=== PATIENT | male | born 1975 | race Caucasian/White ===

== ENCOUNTER 2018-05-10 11:13 | Inpatient (IN) | END 2018-05-16 19:46 | disposition home or self-care (01) | DRG 292 ==

== ENCOUNTER 2018-09-25 06:07 | Observation (INO) | payer BC ==
[2018-09-25] VITALS (51 sets, daily range): BP systolic 96–131; BP diastolic 59–82; PULSE 52–70; RESP 10–30; Ht 165.1 cm; Wt 77.3 kg
[~2018-09-25] VITALS: Ht 165.1 cm; Wt 77.3 kg
[~2018-09-25 06:07] MED LIST: ALLO100T PO; ASPI-817 PO; CARV6.2579 PO; FURO-110 PO; LISI-313 PO; METF500T24 PO; NITR0.4T32 SL; PRED10TA PO; SPIR25TA PO
[2018-09-25] MEDS ORDERED: BUPIVACAINE 0.5% (SDV) 30 ML INJ ONE (06:45)
[2018-09-25] MEDS ORDERED: MIDAZOLAM 1 MG/ML 2 ML INJ ONE ×5 (06:45→08:33)
[2018-09-25] MEDS ORDERED: SOD CHLORIDE 0.9% 500 ML ONE (06:45)
[2018-09-25] MEDS ORDERED: FENTAnyl 50 MCG/ML VIAL ONE ×2 (06:45→07:23)
[2018-09-25] MEDS ORDERED: LIDOCAINE 1% (MDV) 20 ML INJ ONE (06:45)
[2018-09-25] MEDS ORDERED: IODIXANOL LOCM 50 ML BTL ONE (06:45)
[2018-09-25] MEDS ORDERED: POLYMYXIN/BACITRACIN 1L IRRIG IRR SCH (07:00)
[2018-09-25] MEDS ORDERED: CEFAZOLIN 2 GM/50 ML (PMX) 50 ML (FOR WT < 120 KG) IVPB ONE (07:00)
[2018-09-25] MEDS ORDERED: SACU1TAB PO (07:17)
[2018-09-25] MEDS ORDERED: SPIR25TA PO (07:17)
[2018-09-25] MEDS ORDERED: ASPI81TA52 PO (07:17)
[2018-09-25] MEDS ORDERED: CARV3.1260 PO (07:17)
[2018-09-25] MEDS ORDERED: FURO20TA3 PO (07:18)
[2018-09-25] MEDS ORDERED: CEFAZOLIN 1 GM/50 ML (PMX) 100 ML IVPB ONE (07:18)
[2018-09-25] MEDS ORDERED: DIPHENHYDRAMINE 50 MG INJ ONE (07:45)
[2018-09-25] MEDS ORDERED: OXYCODONE/ACETAMINOPHEN (5/325) TAB PO PRN (09:30)
[2018-09-25] MEDS ORDERED: ACETAMINOPHEN 325 MG TAB PO PRN (09:30)
[2018-09-25] MEDS: SOD CHLORIDE 0.9% 1,000 ML IV SCH (09:35)
[2018-09-25] MEDS ORDERED: ONDANSETRON 4 MG INJ ONE (12:08)
[2018-09-25] MEDS ORDERED: morphine 2 MG INJ ONE (12:15)
[2018-09-25] MEDS ORDERED: ONDANSETRON 4 MG INJ IV PRN (12:30)
[2018-09-25] MEDS ORDERED: morphine 2 MG INJ IV PRN ×2 (12:30)
[2018-09-25] MEDS ORDERED: morphine 10 MG INJ IV SCH (12:51)
--- NOTE | 2018-09-25 13:59 | QN ---
Documentation Comment seen and examined ANNIE JIMENEZ MD Sep 25, 2018 13:59
--- NOTE | 2018-09-25 14:42 | EN ---
Date/Time of Note Date/Time of Note DATE: 09/25/18 TIME: 14:41 Event Note Cardiology Cardiology Event Note Patient status post ICD placement by my colleague. Patient seen in PACU because of chest pain. Patient currently appears comfortable, vital signs stable, discussion with patient, chest pain is at the ICD generator site and his left shoulder. It is worse with outpatient movement of the left arm. The site looks clean, no erythema or drainage. Cardiac enzymes have remained negative, chest x-ray with no significant acute abnormalities. As mentioned, his symptoms have improved significantly. Patient to remain overnight for observation. Luis Antonio Piper DO Sep 25, 2018 14:42
--- NOTE | 2018-09-25 14:53 | HP ---
DATE OF ADMISSION: 09/25/2018 REASON FOR ADMISSION: The patient is admitted electively by Dr. Villalobos for AICD placement. Current ly, the patient is under the effect of anesthesia. History is partially obtained from the charts and the nursing reports. HISTORY OF PRESENTING ILLNESS: This is a 43-year-old male with history of kidney stones, who was rec ently admitted in 04/2018. The patient was discharged at that time with a new diagnosis of CHF, acut e on chronic, cardiomyopathy with severe EF of 20% to 25%, hypertension, new onset diabetes, gout and obesity. At that time, patient was supposed to go to to see a magazine designer as an outpatient; however, the patient was admitted today electively by Dr. Villalobos for AICD placement. Status post AI CD however, had received incremental doses of fentanyl and Versed. The patient also received 7 mg of morphine IV due to persistent chest pain. Currently, the patient seems somewhat sleepy. Denies any shortness of breath. No labs are done. PAST MEDICAL HISTORY: 1. Diabetes. 2. CHF, chronic. 3. Hypertension. 4. Gout. 5. Obesity. ALLERGIES: NONE. PAST SURGICAL HISTORY: None. SOCIAL HISTORY: Per records, no history of smoking, alcohol. The patient used to use methamphetamin [employer]. 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 FAMILY HISTORY: Significant for coronary artery disease in father and mother. MEDICATIONS TAKING AT HOME: 1. Coreg 3.125 b.i.d. 2. Entresto 1 tab p.o. b.i.d. 3. Aldactone 25. 4. Aspirin 81. 5. Lasix 20. REVIEW OF SYSTEMS: The patient is currently sedated; however, patient was complaining of chest pain earlier and some shortness of breath earlier. No abdominal pain, nausea, vomiting, diarrhea, hematem esis, melena, bright red blood per rectum. PHYSICAL EXAMINATION: VITAL SIGNS: Currently blood pressure 119/68, heart rate is 56, respirations 13, saturating 97%. GENERAL: The patient is somewhat a little lethargic under effect of sedation. NECK: Supple. No JVD. HEART: Regular rate and rhythm. LUNGS: Clear to auscultation bilaterally. ABDOMEN: Soft, nontender, nondistended. EXTREMITIES: No clubbing, cyanosis or edema. DIAGNOSTIC DATA: Pending. ASSESSMENT AND PLAN: This is a 43-year-old male who presented with: 1. Severe cardiomyopathy status post AICD placement. 2. Altered mental status likely secondary to heavy doses of pain medications. 3. Chest pain, status post procedure. It could be secondary to incisional; however, need to rule ou t underlying ischemia. 4. Hypertension. 5. Diabetes. 6. Hyperlipidemia. 7. History of amphetamine use. 8. Cardiomyopathy with a depressed ejection fraction. PLAN: At this period of time, the patient will be observed carefully. We will get serial troponin a nd CK-MB. Dr. Piper has been notified. We will continue the patient on home medications. Rest of the treatment will depend on the patient's hospitalization course. Dictated By: ANNIE BERNARD/SOPHIE Conf#: [id number] DID#: [id number] CC: SHELLI BERG MD; ANGEL VILLALOBOS MD;*End*
[2018-09-25] MEDS ORDERED: DEXTROSE 50% 50 ML SYRINGE IV PRN ×2 (15:00)
[2018-09-25] MEDS ORDERED: GLUCAGON 1 MG INJ IM PRN (15:00)
[2018-09-25] MEDS ORDERED: GLUCOSE GEL 15 GRAM TUBE BUCCAL PRN (15:00)
[2018-09-25] MEDS ORDERED: GLUCOSE GEL 15 GRAM TUBE PO PRN ×2 (15:00)
[2018-09-25] MEDS: LACTATED RINGER'S 1,000 ML IV SCH (15:16)
[2018-09-25] MEDS: ASPIRIN (EC) 81 MG TAB PO SCH (15:17)
[2018-09-25] MEDS: CEFAZOLIN 1 GM/50 ML (PMX) 50 ML IVPB SCH ×2 (15:20→22:13)
[2018-09-25] MEDS: morphine SULFATE/PF (2 MG/2 ML) SYG IV PRN ×2 (17:35→22:14)
[2018-09-25] MEDS: INSULIN ASPART [NOVOLOG] 3 ML PEN SC SCH ×2 (17:41→20:44)
[2018-09-25] MEDS: SACUBITRIL/VALSARTAN (24mg-26mg) TABLET PO SCH (20:41)
[2018-09-26] VITALS (9 sets, daily range): BP systolic 119–140; BP diastolic 67–82; PULSE 58–69; RESP 16–18
[2018-09-26] MEDS ORDERED: ACCU-CHEK XX SCH (02:00)
[2018-09-26] MEDS: morphine SULFATE/PF (2 MG/2 ML) SYG IV PRN ×3 (04:46→13:05)
[2018-09-26] MEDS: CEFAZOLIN 1 GM/50 ML (PMX) 50 ML IVPB SCH ×2 (05:39→13:06)
[2018-09-26] MEDS: LACTATED RINGER'S 1,000 ML IV SCH (07:00)
[2018-09-26] MEDS: SOD CHLORIDE 0.9% 1,000 ML IV SCH (07:00)
[2018-09-26] MEDS: INSULIN ASPART [NOVOLOG] 3 ML PEN SC SCH ×2 (08:35→11:50)
[2018-09-26] MEDS: ASPIRIN (EC) 81 MG TAB PO SCH (08:37)
[2018-09-26] MEDS ORDERED: SPIRONOLACTONE 25 MG TAB PO SCH (09:00)
[2018-09-26] MEDS ORDERED: FUROSEMIDE 20 MG TAB PO SCH (09:00)
[2018-09-26] MEDS: SACUBITRIL/VALSARTAN (24mg-26mg) TABLET PO SCH (09:40)
--- NOTE | 2018-09-26 10:56 | PN ---
Date/Time of Note Date/Time of Note DATE: 09/26/18 TIME: 10:51 Assessment/Plan VTE Prophylaxis Risk score (from Ns)>0 risk: 1 SCD applied (from Ns): No SCD contraindicated: low risk/ambulating Pharmacological prophylaxis: NA/contraindicated Pharm contraindication: low risk/ambulating Lines/Catheters [facility]from [facility] Peripheral IV Assessment/Plan Hospital Course is is a 43-year-old male who presented with: 1. Severe cardiomyopathy status post AICD placement.POD #1 2. Altered mental status likely secondary to heavy doses of pain medications. 3. Chest pain, status post procedure. It could be secondary to incisional; however, need to rule out underlying ischemia. 4. Hypertension. 5. Diabetes. 6. Hyperlipidemia. 7. History of amphetamine use. 8. Cardiomyopathy with a depressed ejection fraction. plan - po pain meds - AICD precautions - trop neg - ambulate - dc home if ok with Dr sargent Result Diagram: 09/26/18 0709 09/26/18 0709 Results 24hrs Laboratory Tests Test 09/25/18 13:38 09/25/18 17:40 09/25/18 20:38 09/26/18 07:09 White Blood Count 12.9 H 8.4 # Red Blood Count 4.27 L 4.05 L Hemoglobin 13.4 L 12.5 L Hematocrit 39.5 L 37.9 L Mean Corpuscular Volume 92.5 93.6 Mean Corpuscular 31.4 30.9 Hemoglobin Mean Corpuscular 33.9 33.0 Hemoglobin Concent Red Cell Distribution 11.7 11.6 Width Platelet Count 211 200 Mean Platelet Volume 10.3 10.7 H Immature Granulocytes % 0.200 0.200 Neutrophils % 58.1 50.3 Lymphocytes % 32.5 36.3 Monocytes % 7.8 9.8 Eosinophils % 1.2 3.2 Basophils % 0.2 0.2 Nucleated Red Blood 0.0 0.0 Cells % Immature Granulocytes # 0.030 0.020 Neutrophils # 7.5 4.2 Lymphocytes # 4.2 H 3.1 H Monocytes # 1.0 H 0.8 Eosinophils # 0.2 0.3 Basophils # 0.0 0.0 Nucleated Red Blood 0.0 0.0 Cells # CBC Results Faxed/Phoned Sodium Level 140 143 Potassium Level 3.9 4.4 Chloride Level 106 101 Carbon Dioxide Level 27 30 Anion Gap 7 12 Blood Urea Nitrogen 16 17 Creatinine 0.97 1.04 Est Glomerular Filtrat > 60 > 60 Rate mL/min Glucose Level 146 124 Calcium Level 8.9 9.3 Creatine Kinase 138 Creatine Kinase Index 0.3 Creatinine Kinase MB 0.35 (Mass) Troponin I 0.047 Bedside Glucose 115 135 Phosphorus Level 4.2 Magnesium Level 2.0 Test 09/26/18 08:32 Bedside Glucose 157 Subjective 24 Hr Interval Summary Free Text/Dictation Feels better but still has incision and shoulder pain Exam/Review of Systems Vital Signs Vitals Vital Signs Date Temp Pulse Resp B/P (MAP) Pulse Ox O2 O2 Flow FiO2 Time Delivery Rate 09/26/18 65 08:24 09/26/18 97.6 16 140/82 96 07:38 (101) 09/25/18 Nasal 2.0 13:31 Cannula Intake and Output 09/25/18 09/25/18 09/26/18 1515:00 23:00 07:00 IntakeIntake Total 650 ml 1100 ml OutputOutput Total 800 ml BalanceBalance 650 ml 300 ml Exam ENERAL: The patient is awake,alert NECK: Supple. No JVD. HEART: Regular rate and rhythm. LUNGS: Clear to auscultation bilaterally. ABDOMEN: Soft, nontender, nondistended. EXTREMITIES: No clubbing, cyanosis or edema. s/p aicd Left upper chest Medications Medications Current Medications Acetaminophen (Tylenol Tab) 1,000 mg Q4H PRN PO PAIN LEVEL 1-5; Start 09/25/18 at 09:30 Cefazolin Sodium 50 ml @ 100 mls/hr Q8 IVPB Last administered on 09/26/18at 05:39; Admin Dose 100 MLS/HR; Start 09/25/18 at 14:00 Aspirin (Halfprin) 81 mg DAILY PO Last administered on 09/26/18at 08:37; Admin Dose 81 MG; Start 09/25/18 at 11:00 Furosemide (Lasix) 20 mg DAILY PO Last administered on 09/26/18at 08:38; Admin Dose 20 MG; Start 09/26/18 at 09:00 Sacubitril/ Valsartan (Entresto 24 Mg-26 Mg) 24-26mg po BID BID PO Last administered on 09/26/18at 09:40; Admin Dose 1 TAB; Start 09/25/18 at 21:00 Spironolactone (Aldactone) 25 mg DAILY PO Last administered on 09/26/18at 08:37; Admin Dose 25 MG; Start 09/26/18 at 09:00 Ondansetron HCl (Zofran Inj) 4 mg Q4H PRN IV NAUSEA AND/OR VOMITING Last administered on 09/25/18at 12:19; Admin Dose 4 MG; Start 09/25/18 at 12:30 Diagnostic Test (Pha) (Accu-Chek) 1 ea 02 XX ; Start 09/26/18 at 02:00 Insulin Aspart (Novolog Insulin Pen) NOVOLOG *MILD* ALGORITHM WITH MEALS BEDTIME SC ; Start 09/25/18 at 17:55 Miscellaneous Information 1 ea NOTE XX ; Start 09/25/18 at 15:00 Glucose (Glutose) 15 gm Q15M PRN PO DECREASED GLUCOSE; Start 09/25/18 at 15:00 Glucose (Glutose) 22.5 gm Q15M PRN PO DECREASED GLUCOSE; Start 09/25/18 at 15:00 Dextrose (D50w Syringe) 25 ml Q15M PRN IV DECREASED GLUCOSE; Start 09/25/18 at 15:00 Dextrose (D50w Syringe) 50 ml Q15M PRN IV DECREASED GLUCOSE; Start 09/25/18 at 15:00 Glucagon (Glucagen) 1 mg Q15M PRN IM DECREASED GLUCOSE; Start 09/25/18 at 15:00 Glucose (Glutose) 15 gm Q15M PRN BUCCAL DECREASED GLUCOSE; Start 09/25/18 at 15:00 Morphine Sulfate (morphine SULFATE (PF)) 2.5 mg Q4H PRN IV SEVERE PAIN LEVEL 7- 10 Last administered on 09/26/18at 08:52; Admin Dose 2.5 MG; Start 09/25/18 at 18:00 ANNIE JIMENEZ MD Sep 26, 2018 10:56
--- NOTE | 2018-09-26 10:57 | PDOCDIS ---
Discharge Instructions DIAGNOSIS Discharge Diagnosis S/P AICD CONDITION [id number] Patient Condition: [id number] Fair HOME CARE INSTRUCTIONS: [id number] Special Diet: [id number] CARDIAC ACTIVITY: [id number] Activity Restrictions: [id number] Slowly Increase Activity Rest between Activity FOLLOW UP/APPOINTMENTS Follow-up Plan AICD precautions f/u Dr Piper in 1-2 weeks keep surgical site clean return to ER if has chest pain, any signs of infection ANNIE JIMENEZ MD Sep 26, 2018 10:57
[2018-09-26] MEDS ORDERED: HYDR-4012 PO (10:58)
--- NOTE | 2018-09-26 12:42 | CONS ---
Date/Time of Note Date/Time of Note DATE: 09/26/18 TIME: 12:40 Assessment/Plan Assessment/Plan Assessment/Plan Severe cardiomyopathy status post dual-chamber ICD placement 09/25/2018 -Patient status post ICD placement yesterday. Chest x-ray with mild point vascular congestion but otherwise no pneumothorax. Would continue diuretics. Patient ordered for pain medication. Limitations discussed with patient. Patient to follow-up with Dr. Villalobos as an outpatient. Result Diagram: 09/26/18 0709 09/26/18 0709 Results 24hrs Laboratory Tests Test 09/25/18 13:38 09/25/18 17:40 09/25/18 20:38 09/26/18 07:09 White Blood Count 12.9 H 8.4 # Red Blood Count 4.27 L 4.05 L Hemoglobin 13.4 L 12.5 L Hematocrit 39.5 L 37.9 L Mean Corpuscular Volume 92.5 93.6 Mean Corpuscular 31.4 30.9 Hemoglobin Mean Corpuscular 33.9 33.0 Hemoglobin Concent Red Cell Distribution 11.7 11.6 Width Platelet Count 211 200 Mean Platelet Volume 10.3 10.7 H Immature Granulocytes % 0.200 0.200 Neutrophils % 58.1 50.3 Lymphocytes % 32.5 36.3 Monocytes % 7.8 9.8 Eosinophils % 1.2 3.2 Basophils % 0.2 0.2 Nucleated Red Blood 0.0 0.0 Cells % Immature Granulocytes # 0.030 0.020 Neutrophils # 7.5 4.2 Lymphocytes # 4.2 H 3.1 H Monocytes # 1.0 H 0.8 Eosinophils # 0.2 0.3 Basophils # 0.0 0.0 Nucleated Red Blood 0.0 0.0 Cells # CBC Results Faxed/Phoned Sodium Level 140 143 Potassium Level 3.9 4.4 Chloride Level 106 101 Carbon Dioxide Level 27 30 Anion Gap 7 12 Blood Urea Nitrogen 16 17 Creatinine 0.97 1.04 Est Glomerular Filtrat > 60 > 60 Rate mL/min Glucose Level 146 124 Calcium Level 8.9 9.3 Creatine Kinase 138 Creatine Kinase Index 0.3 Creatinine Kinase MB 0.35 (Mass) Troponin I 0.047 Bedside Glucose 115 135 Phosphorus Level 4.2 Magnesium Level 2.0 Test 09/26/18 08:32 09/26/18 12:11 Bedside Glucose 157 132 Consultation Date/Type/Reason Admit Date/Time Sep 25, 2018 at 09:03 Initial Consult Date Type of Consult cv 24 HR Interval Summary Free Text/Dictation Chest wall pain is better. Denies shortness of breath, dizziness or palpitations Exam/Review of Systems Vital Signs Vitals Vital Signs Date Temp Pulse Resp B/P (MAP) Pulse Ox O2 O2 Flow FiO2 Time Delivery Rate 09/26/18 98.5 68 16 120/74 94 11:42 (89) 09/25/18 Nasal 2.0 13:31 Cannula Intake and Output 09/25/18 09/25/18 09/26/18 1515:00 23:00 07:00 IntakeIntake Total 650 ml 1100 ml OutputOutput Total 800 ml BalanceBalance 650 ml 300 ml Exam No apparent distress Constitutional: alert, oriented Head: normocephalic Respiratory: other (Coarse breath sounds bilaterally, no wheezing) Cardiovascular: regular rate and rhythm, other (S1-S2 heard) Gastrointestinal: soft, non-tender, bowel sounds Extremities: other (No significant edema) Additional Comments Chest wall ICD pocket site is soft, mild ecchymosis, no significant erythema, no drainage Medications Medications Current Medications Acetaminophen (Tylenol Tab) 1,000 mg Q4H PRN PO PAIN LEVEL 1-5; Start 09/25/18 at 09:30 Cefazolin Sodium 50 ml @ 100 mls/hr Q8 IVPB Last administered on 09/26/18at 05:39; Admin Dose 100 MLS/HR; Start 09/25/18 at 14:00 Aspirin (Halfprin) 81 mg DAILY PO Last administered on 09/26/18at 08:37; Admin Dose 81 MG; Start 09/25/18 at 11:00 Furosemide (Lasix) 20 mg DAILY PO Last administered on 09/26/18 08:38; Admin Dose 20 MG; Start 09/26/18 at 09:00 Sacubitril/ Valsartan (Entresto 24 Mg-26 Mg) 24-26mg po BID BID PO Last administered on 09/26/18at 09:40; Admin Dose 1 TAB; Start 09/25/18 at 21:00 Spironolactone (Aldactone) 25 mg DAILY PO Last administered on 09/26/18at 08:37; Admin Dose 25 MG; Start 09/26/18 at 09:00 Ondansetron HCl (Zofran Inj) 4 mg Q4H PRN IV NAUSEA AND/OR VOMITING Last administered on 09/25/18at 12:19; Admin Dose 4 MG; Start 09/25/18 at 12:30 Diagnostic Test (Pha) (Accu-Chek) 1 ea 02 XX ; Start 09/26/18 at 02:00 Insulin Aspart (Novolog Insulin Pen) NOVOLOG *MILD* ALGORITHM WITH MEALS BEDTIME SC ; Start 09/25/18 at 17:55 Miscellaneous Information 1 ea NOTE XX ; Start 09/25/18 at 15:00 Glucose (Glutose) 15 gm Q15M PRN PO DECREASED GLUCOSE; Start 09/25/18 at 15:00 Glucose (Glutose) 22.5 gm Q15M PRN PO DECREASED GLUCOSE; Start 09/25/18 at 15:00 Dextrose (D50w Syringe) 25 ml Q15M PRN IV DECREASED GLUCOSE; Start 09/25/18 at 15:00 Dextrose (D50w Syringe) 50 ml Q15M PRN IV DECREASED GLUCOSE; Start 09/25/18 at 15:00 Glucagon (Glucagen) 1 mg Q15M PRN IM DECREASED GLUCOSE; Start 09/25/18 at 15:00 Glucose (Glutose) 15 gm Q15M PRN BUCCAL DECREASED GLUCOSE; Start 09/25/18 at 15:00 Morphine Sulfate (morphine SULFATE (PF)) 2.5 mg Q4H PRN IV SEVERE PAIN LEVEL 7- 10 Last administered on 09/26/18at 08:52; Admin Dose 2.5 MG; Start 09/25/18 at 18:00 Luis Antonio Piper DO Sep 26, 2018 12:42
--- NOTE | 2018-09-26 18:04 | DS ---
DATE OF ADMISSION: 09/25/2018 DATE OF DISCHARGE: 09/26/2018 HISTORY OF PRESENT ILLNESS AND HOSPITAL COURSE: This is a 43-year-old male with a past medical histo ry of kidney stones, CHF acute on chronic, cardiomyopathy with EF of 20% to 25%, hypertension, diabet es, gout, obesity who was following Dr. Coppola as an outpatient, was admitted electively by Dr. Unique amaya for AICD placement. Status post AICD placement, the patient was having incremental doses of f entanyl and Versed. He also received quite heavy doses of IV morphine due to persistent chest pain, had some shortness of breath. On admission, vital signs were stable. Labs showed white count of 12. 9, this came down to 8.4, hemoglobin 12.5, BMP within normal limit. The patient had a chest x-ray th at showed some cardiomegaly with mild pulmonary vascular congestion. The patient was feeling much be tter the next day; however, still requiring narcotics for pain. The patient was seen by Dr. Feliz jimenez and was cleared for discharge. The patient is ambulating. The patient was explained about the A ICD precautions. FINAL DISCHARGE DIAGNOSES: 1. Severe cardiomyopathy status post AICD placement. 2. Chest pain status post procedure secondary to incisional. Troponins were negative. EKG negative . 3. Hypertension. 4. Diabetes. 5. Hyperlipidemia. 6. History of amphetamine use. 7. History of cardiomyopathy with depressed EF. DISCHARGE CONDITION: Stable. DISCHARGE DIET: Two-gram sodium, 1800 ADA. DISCHARGE MEDICATIONS: 1. [place] 1 tab p.o. q.4h. p.r.n. pain. 2. Aspirin 81. 3. Coreg 3.125 b.i.d. 4. Lasix 40. 5. Entresto 1 tab p.o. b.i.d. 6. Spironolactone 25 every day. The patient was instructed to follow with PCP in 1 to 2 weeks, cardiology in 1 to 2 weeks and keep th e surgical site clean. Dictated By: ANNIE BERNARD/SOPHIE Conf#: [id number] DID#: [id number] CC: ANGEL YOON MD;*EndCC*
--- NOTE | 2018-09-27 11:56 | RADRPT ---
Vent Rate: 56 bpm RR Interval: 0 msec WV Interval: 170 msec QRS Duration: 122 msec QT Interval: 486 msec QTC Interval: 468 msec P-R-T [place]: 34 - -11 - 134 degrees Sinus bradycardia Nonspecific intraventricular conduction delay T wave abnormality, consider anterolateral ischemia Abnormal ECG Electronically Signed By: Yordan Tsang [id number]
== END 2018-09-26 16:57 | disposition home or self-care (01) ==
LOC: SDS 06:07 → TEL 09:03 → REC 09:03 → UNDOADMIN 09:03 → TEL 13:46 → REC 13:46
PROVIDERS: ADMIT Internal Medicine Cardiovascular Disease; ATTEND Internal Medicine Cardiovascular Disease
DX: I42.9 Cardiomyopathy, unspecified (principal); R07.9 Chest pain, unspecified; I10 Essential (primary) hypertension; E11.9 Type 2 diabetes mellitus without complications; E78.5 Hyperlipidemia, unspecified; F15.10 Other stimulant abuse, uncomplicated; E66.9 Obesity, unspecified; Z68.28 Body mass index [BMI] 28.0-28.9, adult; Z95.810 Presence of automatic (implantable) cardiac defibrillator
CPT/HCPCS: 33249; 71045; 80048; 82550; 82553; 82962; 83735; 84100; 84484; 85025; 93005; C1721; C1777; C1898; J0690; J1200; J1644; J2250; J2270; J2274; J2405; J3010; J7030; J7040; J7120; Q9967; Z7500; Z7610; G0378; J1815

== ENCOUNTER 2019-03-22 18:36 | Inpatient (IN) | payer BC ==
[~2019-03-22] VITALS: Ht 165.1 cm; Wt 82.5 kg
[~2019-03-22 18:36] MED LIST changes: -ALLO100T PO; -ASPI-817 PO; +ASPI81TA52 PO; +CARV3.1260 PO; -CARV6.2579 PO; -FURO-110 PO; +FURO20TA3 PO; +HYDR-4012 PO; -LISI-313 PO; -METF500T24 PO; -NITR0.4T32 SL; -PRED10TA PO; +SACU1TAB PO
[2019-03-22 20:00] VITALS: BP 161/91; PULSE 84; RESP 18
[2019-03-22 20:30] VITALS: BP 120/76; PULSE 82; RESP 18
[2019-03-22] MEDS ORDERED: HYDROCODONE/APAP (7.5/325) TAB PO PRN (22:00)
[2019-03-22] MEDS ORDERED: ALBUTEROL/IPRATROPIUM (NEB) 3 ML AMP HHN PRN (22:00)
[2019-03-22] MEDS ORDERED: CEFTRIAXONE 1 GM/50 ML (PMX) 50 ML IVPB SCH (22:00)
[2019-03-23] VITALS (7 sets, daily range): BP systolic 110–143; BP diastolic 53–84; PULSE 66–83; RESP 18–20; Ht 165.1 cm; Wt 82.5 kg
[2019-03-23] MEDS ORDERED: POTASSIUM CHLORIDE (SR) 20 MEQ TAB PO ONE (01:00)
[2019-03-23] MEDS: SACUBITRIL/VALSARTAN (24mg-26mg) TABLET PO SCH ×2 (08:09→22:11)
[2019-03-23] MEDS: ASPIRIN 81 MG TAB PO SCH (08:10)
[2019-03-23] MEDS: SPIRONOLACTONE 25 MG TAB PO SCH (08:10)
[2019-03-23] MEDS: FUROSEMIDE 20 MG TAB PO SCH (08:10)
--- NOTE | 2019-03-23 13:17 | HP ---
ZAYNAB MONTESINOS 03/23/19 1317: Date/Time of Note Date/Time of Note DATE: 03/23/19 TIME: 13:17 Assessment/Plan VTE Prophylaxis Risk score (from [facility] [place] risk: 4 SCD applied (from [facility] [place]): No SCD contraindicated: other Pharmacological prophylaxis: LMWH Lines/Catheters IV Catheter Type (from [facility]): [place] Urinary Cath still in place: No Assessment/Plan Hospital Course 1. Sepsis with myalgia, fever, leucocytosis. pt had lactic acid 3.78 in [facility] , WBC 16. Blood cultures was drawn in the [facility], pending. 2. Tonsillitis. Pt has history of group A strep throat infection in past. 3. Hypertension 4. Obesity 5. CHF, EF 15-20 % 6. Normocytic normochromic anemia 7. s/p defibrillator placement 09/2018, 8. Hx of appendectomy 9. Hx of gout 10. Possible DM type II, incomplete data. Pt denied Assessment/Plan -c/w Rocephin -DVT proph. Lovenox -hypoglycemic protocol -GI proph. Protonix -BP control -c/w coreg, furosemide -iron panel -throat culture -blood cultures were drawn in the [facility], wait for res. -mag citrate for constipation -lozenges to suck Result Diagram: 03/22/19223503/22/192235 Results 24hrs Laboratory Tests Test 03/22/19 22:36 White Blood Count 15.1 #H Red Blood Count 3.85 L Hemoglobin 11.8 L Hematocrit 34.0 L Mean Corpuscular Volume 88.3 Mean Corpuscular Hemoglobin 30.6 Mean Corpuscular Hemoglobin Concent 34.7 Red Cell Distribution Width 12.5 Platelet Count 195 Mean Platelet Volume 10.8 H Immature Granulocytes % 0.500 H Neutrophils % 68.9 Lymphocytes % 17.6 Monocytes % 10.4 Eosinophils % 2.4 Basophils % 0.2 Nucleated Red Blood Cells % 0.0 Immature Granulocytes # 0.080 H Neutrophils # 10.4 H Lymphocytes # 2.7 Monocytes # 1.6 H Eosinophils # 0.4 Basophils # 0.0 Nucleated Red Blood Cells # 0.0 Sodium Level 144 Potassium Level 3.6 Chloride Level 108 Carbon Dioxide Level 25 Anion Gap 11 Blood Urea Nitrogen 14 Creatinine 1.07 Est Glomerular Filtrat Rate mL/min > 60 Glucose Level 191 Calcium Level 8.8 Total Bilirubin 0.9 Direct Bilirubin 0.00 Indirect Bilirubin 0.9 Aspartate Amino Transf (AST/SGOT) 17 Alanine Aminotransferase (ALT/SGPT) 16 Alkaline Phosphatase 72 Total Protein 7.3 Albumin 3.8 Globulin 3.50 H Albumin/Globulin Ratio 1.08 HPI/ROS Admit Date/Time Admit Date/Time Mar 22, 2019 at 18:36 Hx of Present Illness This 44 y.o male with medical history of CHF, obesity, DM type ii, gout, implanted defibrillator, hypertension, and group A strep throat was transferred this night from [facility] for fever, myalgia, nausea, and pain in throat. Pt had similar symptoms before, he was diagnosed with sepsis. He was brought to ER [place] [facility] on 03/22/2019. He was drawn blood. CBC showed 16.1 RBC 4.09 hemoglobin 12.5 hematocrit 35.8 platelets 197. UA is negative. BMP shows glucose 264 sodium 142 potassium 3.0 chloride 104 CO2 24 BUN 14 calcium 8.9 albumin 3.6. Lactic acid once 3.78. Vital signs blood pressure 120/71 saturation on room air 97 temperature 99.3 pulse 96 respiration 18. Chest x-ray was done results are not seen. It was given penicillin 1,200,000 once IV . Potassium was supplemented patient was given 2 L of sodium chloride. Due to insurance purposes was transferred to [facility]. Medical history: 1. Diabetes mellitus type II. 2. CHF, chronic. 3. Hypertension. 4. Gout. 5. Obesity. SOCIAL HISTORY: Per records, no history of smoking, alcohol. The patient used to use methamphetamine. 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 ROS Constitutional: chills, fatigue, febrile, poor po ENT: sore throat Respiratory: no complaints Gastrointestinal: nausea, other (poor apetite) Genitourinary: no complaints Musculoskeletal: bone/joint pain Neurologic: no complaints Lymphatic: adenopathy PMH/Family/Social Past Medical History Medications Current Medications Aspirin (Aspirin) 81 mg DAILY PO Last administered on 03/23/19at 08:10; Admin Dose 81 MG; Start 03/23/19 at 09:00 Carvedilol (Coreg) 3.125 mg BID PO Last administered on 03/23/19at 08:09; Admin Dose 3.125 MG; Start 03/22/19 at 22:00 Furosemide (Lasix) 20 mg DAILY PO Last administered on 03/23/19at 08:10; Admin Dose 20 MG; Start 03/23/19 at 09:00 Spironolactone (Aldactone) 25 mg DAILY PO Last administered on 03/23/19at 08:10; Admin Dose 25 MG; Start 03/23/19 at 09:00 Acetaminophen/ Hydrocodone Bitart ([place] (7.5-325)) 1 tab Q4H PRN PO MODERATE PAIN LEVEL 4-6; Start 03/22/19 at 22:00 Acetaminophen (Tylenol Tab) 650 mg Q6H PRN PO MILD PAIN(1-3)OR ELEVATED TEMP; Start 03/22/19 at 22:00 Albuterol/ Ipratropium (Duoneb) 3 ml Q6H RESP THERAPY PRN HHN SHORTNESS OF BREATH; Start 03/22/19 at 22:00 Ceftriaxone Sodium 50 ml @ 100 mls/hr Q24H IVPB Last administered on 03/22/19at 23:20; Admin Dose 100 MLS/HR; Start 03/22/19 at 22:00 Sacubitril/ Valsartan (Entresto 24 Mg-26 Mg) 1 tab BID PO Last administered on 03/23/19at 08:09; Admin Dose 1 TAB; Start 03/23/19 at 09:00 Coded Allergies: No Known Allergy (Unverified , 09/25/18) Past Surgical History Past Surgical Hx: other (ACID 09/2018, appendectomy) Social History Alcohol Use: none Smoking Status: Current every day smoker Drug Use: other (methamph. in past. ) Exam/Review of Systems Vital Signs Vitals Vital Signs Date Temp Pulse Resp B/P (MAP) Pulse Ox O2 O2 Flow FiO2 Time Delivery Rate 03/23/19 98.2 70 18 117/59 96 Room Air 11:11 (78) Intake and Output 03/22/19 03/22/19 03/23/19 1515:00 23:00 07:00 IntakeIntake Total 50 ml BalanceBalance 50 ml Exam Exam left chest defibrillator. Constitutional: alert, oriented Psych: no complaints Head: normocephalic ENMT: other (tonsills are enlarged, grade II, with purulent lacunas) Neck: supple, other Respiratory: diminished breath sounds Cardiovascular: regular rate and rhythm Gastrointestinal: soft Genitourinary - Male: CVA tenderness; No nl penis, No nl scrotum, No discharge, No other ANNIE JIMENEZ MD 03/23/19 1530: Assessment/Plan Assessment/Plan Assessment/Plan seen and examined recurrent strep phargitis pencilllin id consult Result Diagram: 03/22/19 2236 03/22/192235 PMH/Family/Social Past Medical History Coded Allergies: No Known Allergy (Unverified , 09/25/18) ZAYNAB MONTESINOS Mar 23, 2019 13:17 ANNIE JIMENEZ MD Mar 23, 2019 15:30
[2019-03-23] MEDS ORDERED: GLUCOSE GEL 15 GRAM TUBE BUCCAL PRN (14:00)
[2019-03-23] MEDS ORDERED: GLUCOSE GEL 15 GRAM TUBE PO PRN ×2 (14:00)
[2019-03-23] MEDS ORDERED: DEXTROSE 50% 50 ML SYRINGE IV PRN ×2 (14:00)
[2019-03-23] MEDS ORDERED: CEPASTAT LOZENGE MT PRN (14:00)
[2019-03-23] MEDS ORDERED: GLUCAGON 1 MG INJ IM PRN (14:00)
[2019-03-23] MEDS: ENOXAPARIN 40 MG/0.4 ML SYG SC SCH (14:59)
[2019-03-23] MEDS ORDERED: MAGNESIUM CITRATE 300 ML BTL PO ONE (15:00)
[2019-03-23] MEDS: AMOXICILLIN 500 MG CAP PO SCH ×2 (17:02→23:25)
[2019-03-23] MEDS: INSULIN ASPART [NOVOLOG] 3 ML PEN SC SCH ×2 (17:02→21:56)
--- NOTE | 2019-03-23 19:50 | CONS ---
DATE OF ADMISSION: 03/22/2019 DATE OF CONSULTATION: 03/23/2019 TYPE OF CONSULTATION: Infectious disease. REASON FOR CONSULTATION: Antibiotic management. HISTORY OF PRESENT ILLNESS: Riley Romano is a 44-year-old male with numerous problems who comes in with sepsis and is being seen for antibiotic management. His past problems include: 1. Coronary artery disease with CHF. 2. Obesity. 3. Type 2 diabetes mellitus. 4. Implanted defibrillator. 5. Gout. 6. Hypertension. The patient was noted to have group A strep pharyngitis and was transferred from [facility] for fever, myalgia and nausea and pain in his throat. The patient was brought to the emergency room on 03/22/2019. His white count was 16.1, H and H of 12.5 , platelet count 197. UA is negative. BMP shows glucose of 264. BUN and creatinine is 14/1.07. Lactic acid was 3.78. Vital Signs: Blo od pressure was 120/70. His temperature is 99.3. Chest x-ray was done. The patient was given 1.2 m illion units of penicillin IV and he was transferred to [facility]. PAST MEDICAL HISTORY: Essentially as outlined. FAMILY HISTORY: Noncontributory. SOCIAL HISTORY: He does not smoke, drink or abuse drugs. He used to use amphetamines, methamphetami dexter. 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 REVIEW OF SYSTEMS: Noncontributory. PAST SURGICAL HISTORY: Positive for AICD and also for appendectomy. In reviewing his history, he is a current every day smoker. He does not drink, and he has used metha mphetamines in the past. PHYSICAL EXAMINATION GENERAL: He is a well-developed, well-nourished male, alert, responsive, in no acute distress. VITAL SIGNS: Stable. He is afebrile. SKIN: Without generalized rash. HEENT: Within normal limits. He has enlarged tonsils with purulent lacunae. NECK: Supple. Lymph nodes none palpable. THORAX: He has a left chest defibrillator. CHEST: Decreased breath sounds at the bases. HEART: Without murmur or gallop. ABDOMEN: Soft, nontender, without organosplenomegaly or masses. He has some CVA tenderness. RECTAL AND GENITAL: Deferred. NEUROLOGIC: No focal neurological abnormality. IMPRESSION AND PLAN: The patient was admitted with strep pharyngitis. Group A rapid strep test was negative, so it is not likely that he has strep pharyngitis. White count, however, is 15.1. The pat ient was placed on amoxicillin 500 q.8. We will continue him on this regimen. I will dictate my fin dings to Dr. Ramires. Dictated By: ATIF DUFF MD, JD/SOPHIE Conf#: [id number] DID#: [id number] CC: SHELLI BERG MD;*End*
[2019-03-23] MEDS: ACETAMINOPHEN 325 MG TAB PO PRN (22:10)
[2019-03-24 02:25] VITALS: BP 115/71; PULSE 61; RESP 16
[2019-03-24] MEDS: AMOXICILLIN 500 MG CAP PO SCH ×3 (05:58→21:38)
[2019-03-24] MEDS: PANTOPRAZOLE (EC) 40 MG TAB PO SCH (05:58)
[2019-03-24 07:32] VITALS: BP 100/56; PULSE 62; RESP 20
[2019-03-24] MEDS: INSULIN ASPART [NOVOLOG] 3 ML PEN SC SCH ×4 (08:00→21:00)
[2019-03-24] MEDS: FUROSEMIDE 20 MG TAB PO SCH (08:21)
[2019-03-24] MEDS: SACUBITRIL/VALSARTAN (24mg-26mg) TABLET PO SCH ×2 (08:21→21:42)
[2019-03-24] MEDS: ASPIRIN 81 MG TAB PO SCH (08:21)
[2019-03-24] MEDS: SPIRONOLACTONE 25 MG TAB PO SCH (08:21)
[2019-03-24] MEDS: ENOXAPARIN 40 MG/0.4 ML SYG SC SCH (08:22)
--- NOTE | 2019-03-24 10:24 | PN ---
Date/Time of Note Date/Time of Note DATE: 03/24/19 TIME: 10:22 Assessment/Plan VTE Prophylaxis Risk score (from Ns)>0 risk: 1 SCD applied (from [facility] No SCD contraindicated: other Pharmacological prophylaxis: LMWH Lines/Catheters IV Catheter Type (from [facility]): Peripheral IV Urinary Cath still in place: No Assessment/Plan Hospital Course 1. Sepsis with myalgia, fever, leucocytosis. pt had lactic acid 3.78 in [facility] ,consecutive lactic acid is 1.1. WBC 16in [facility]. Blood cultures was drawn in the [facility], pending. 2. Tonsillitis. Pt has history of group A strep throat infection in past. Now throat culture strep A is negative 3. Hypertension 4. Obesity 5. CHF, EF 15-20 % 6. Normocytic normochromic anemia, iron level is normal 7. s/p defibrillator placement 09/2018, 8. Hx of appendectomy 9. Hx of gout 10. pt is prediabetic Hg A1 C 5.9 Assessment/Plan -c/w Amoxicillin -ID consult dr Herbert is appreciated -DVT proph. Lovenox -hypoglycemic protocol -GI proph. Protonix -BP control achieved -c/w coreg, furosemide -iron panel, normal amount of iron -throat culture neg. -blood cultures were drawn in the [facility], wait for res. -lozenges to suck Result Diagram: 03/24/19 0458 03/24/19 0457 Results 24hrs Laboratory Tests Test 03/23/19 17:01 03/23/19 21:50 03/24/19 01:53 03/24/19 04:57 Bedside Glucose 128 181 152 Sodium Level 144 Potassium Level 3.9 Chloride Level 108 Carbon Dioxide Level 28 Anion Gap 8 Blood Urea Nitrogen 14 Creatinine 0.86 Est Glomerular Filtrat > 60 Rate mL/min Glucose Level 136 # Lactic Acid Level 1.1 Calcium Level 9.0 Test 03/24/19 04:58 03/24/19 08:18 White Blood Count 8.2 # Red Blood Count 4.14 L Hemoglobin 12.5 L Hematocrit 36.3 L Mean Corpuscular Volume 87.7 Mean Corpuscular 30.2 Hemoglobin Mean Corpuscular 34.4 Hemoglobin Concent Red Cell Distribution 12.4 Width Platelet Count 260 # Mean Platelet Volume 10.7 H Immature Granulocytes % 0.900 H Neutrophils % 38.2 L Lymphocytes % 43.3 Monocytes % 11.4 H Eosinophils % 5.8 Basophils % 0.4 Nucleated Red Blood 0.0 Cells % Immature Granulocytes # 0.070 H Neutrophils # 3.1 Lymphocytes # 3.5 H Monocytes # 0.9 Eosinophils # 0.5 Basophils # 0.0 Nucleated Red Blood 0.0 Cells # Hemoglobin A1c 5.9 Iron Level 90 Total Iron Binding 258 Capacity Percent Iron Saturation 35 Thyroid Stimulating 3.380 Hormone (TSH) Bedside Glucose 137 Subjective 24 Hr Interval Summary Constitutional: improved ENT: sore throat Lymphatic: adenopathy Exam/Review of Systems Exam Vitals Vital Signs Date Temp Pulse Resp B/P (MAP) Pulse Ox O2 O2 Flow FiO2 Time Delivery Rate 03/24/19 97.9 62 20 100/56 96 07:32 (71) 03/23/19 Room Air 20:00 Intake and Output 03/23/19 03/23/19 03/24/19 1515:00 23:00 07:00 IntakeIntake Total 1120 ml 350 ml BalanceBalance 1120 ml 350 ml Constitutional: alert, oriented ENMT: nl external ears & nose Respiratory: clear to auscultation Cardiovascular: regular rate and rhythm Gastrointestinal: soft Lymph: enlarged (right side of the neck) Results Results 24hrs Laboratory Tests Test 03/23/19 17:01 03/23/19 21:50 03/24/19 01:53 03/24/19 04:57 Bedside Glucose 128 181 152 Sodium Level 144 Potassium Level 3.9 Chloride Level 108 Carbon Dioxide Level 28 Anion Gap 8 Blood Urea Nitrogen 14 Creatinine 0.86 Est Glomerular Filtrat > 60 Rate mL/min Glucose Level 136 # Lactic Acid Level 1.1 Calcium Level 9.0 Test 03/24/19 04:58 03/24/19 08:18 White Blood Count 8.2 # Red Blood Count 4.14 L Hemoglobin 12.5 L Hematocrit 36.3 L Mean Corpuscular Volume 87.7 Mean Corpuscular 30.2 Hemoglobin Mean Corpuscular 34.4 Hemoglobin Concent Red Cell Distribution 12.4 Width Platelet Count 260 # Mean Platelet Volume 10.7 H Immature Granulocytes % 0.900 H Neutrophils % 38.2 L Lymphocytes % 43.3 Monocytes % 11.4 H Eosinophils % 5.8 Basophils % 0.4 Nucleated Red Blood 0.0 Cells % Immature Granulocytes # 0.070 H Neutrophils # 3.1 Lymphocytes # 3.5 H Monocytes # 0.9 Eosinophils # 0.5 Basophils # 0.0 Nucleated Red Blood 0.0 Cells # Hemoglobin A1c 5.9 Iron Level 90 Total Iron Binding 258 Capacity Percent Iron Saturation 35 Thyroid Stimulating 3.380 Hormone (TSH) Bedside Glucose 137 Medications Medication Current Medications Aspirin (Aspirin) 81 mg DAILY PO Last administered on 03/24/19 08:21; Admin Dose 81 MG; Start 03/23/19 at 09:00 Carvedilol (Coreg) 3.125 mg BID PO Last administered on 03/24/19 08:21; Admin Dose 3.125 MG; Start 03/22/19 at 22:00 Furosemide (Lasix) 20 mg DAILY PO Last administered on 03/24/19 08:21; Admin Dose 20 MG; Start 03/23/19 at 09:00 Spironolactone (Aldactone) 25 mg DAILY PO Last administered on 03/24/19 08:21; Admin Dose 25 MG; Start 03/23/19 at 09:00 Acetaminophen/ Hydrocodone Bitart ([place] (7.5-325)) 1 tab Q4H PRN PO MODERATE PAIN LEVEL 4-6; Start 03/22/19 at 22:00 Acetaminophen (Tylenol Tab) 650 mg Q6H PRN PO MILD PAIN(1-3)OR ELEVATED TEMP Last administered on 03/23/19 22:10; Admin Dose 650 MG; Start 03/22/19 at 22:00 Albuterol/ Ipratropium (Duoneb) 3 ml Q6H RESP THERAPY PRN HHN SHORTNESS OF BREATH; Start 03/22/19 at 22:00 Sacubitril/ Valsartan (Entresto 24 Mg-26 Mg) 1 tab BID PO Last administered on 03/24/19 08:21; Admin Dose 1 TAB; Start 03/23/19 at 09:00 Pantoprazole (Protonix Tab) 40 mg DAILY@06 PO Last administered on 03/24/19 05:58; Admin Dose 40 MG; Start 03/24/19 at 06:00 Enoxaparin Sodium (Lovenox) 40 mg DAILY SC Last administered on 03/24/19 08:22; Admin Dose 40 MG; Start 03/23/19 at 13:30 Insulin Aspart (Novolog Insulin Pen) NOVOLOG *MILD* ALGORITHM WITH MEALS BEDTIME SC Last administered on 03/23/19at 21:56; Admin Dose 1 UNIT; Start 03/23/19 at 17:55 Miscellaneous Information 1 ea NOTE XX ; Start 03/23/19 at 14:00 Glucose (Glutose) 15 gm Q15M PRN PO DECREASED GLUCOSE; Start 03/23/19 at 14:00 Glucose (Glutose) 22.5 gm Q15M PRN PO DECREASED GLUCOSE; Start 03/23/19 at 14:00 Dextrose (D50w Syringe) 25 ml Q15M PRN IV DECREASED GLUCOSE; Start 03/23/19 at 14:00 Dextrose (D50w Syringe) 50 ml Q15M PRN IV DECREASED GLUCOSE; Start 03/23/19 at 14:00 Glucagon (Glucagen) 1 mg Q15M PRN IM DECREASED GLUCOSE; Start 03/23/19 at 14:00 Glucose (Glutose) 15 gm Q15M PRN BUCCAL DECREASED GLUCOSE; Start 03/23/19 at 14:00 Phenol (Cepastat Lozenge) 1 lozenge Q3 PRN MT sore throat; Start 03/23/19 at 14:00 Amoxicillin (Amoxicillin) 500 mg Q8 PO Last administered on 03/24/19at 05:58; Admin Dose 500 MG; Start 03/23/19 at 16:00 ZAYNAB MONTESINOS Mar 24, 2019 10:24
[2019-03-24] MEDS: ACETAMINOPHEN 325 MG TAB PO PRN (11:10)
[2019-03-24 14:32] VITALS: BP 124/77; PULSE 69; RESP 20
--- NOTE | 2019-03-24 19:15 | CONS ---
Assessment/Plan Assessment/Plan Hospital Course (Demo Recall) ID PROGRESS NOTE CURRENT ABX: DAY # =>Amoxicillin po #2 03/24/19 0458 03/24/19 0457 24H INTERVAL SUMMARY * Much improved -- still has tonsillitis pain -- palpable submandibular -- no significant edema -- no risk of upper airway compromise * Tells me they were told (+)STREP AG @ [facility] -- this his his 2nd occurrence as he was Dx with this about 6 mos ago * MICRO: 03/23/19 RAPID STREP ANTIGEN BY EIA Final RAPID STREP ANTIGEN ,EIA NEGATIVE (Ref Range Neg) DIAGNOSTIC IMAGING * ADMISSION CXR: PHYSICAL EXAMINATION: GENERAL: VSS, NAD HEENT: AT, NC, NECK: Supple, CHEST: Equal chest rise bilaterally without dyspnea on observation HEART: Pulse RRR ABDOMEN: Benign EXTREMITIES: Warm, dry SKIN: No rash, no diaphoresis ID ASSESSMENT 44 yo M admit with: 1. Sepsis with myalgia, fever, leucocytosis. pt had lactic acid 3.78 in [facility] , WBC 16. * Blood cultures was drawn in the [facility], pending. 2. Tonsillitis/Pharyngitis per [facility] (+)Strep AG * MICRO: 03/23/19 RAPID STREP ANTIGEN BY EIA Final RAPID STREP ANTIGEN ,EIA NEGATIVE (Ref Range Neg) 3. Hypertension 4. Obesity 5. Severe Non-Ischemic CMY w/exacerbation CHF, EF 15-20 % * Idiopathic ? Possible viral etiology * Denied heavy ETOH - reported social ETOH, remote METH > 10 years ago (unreliable historian) 6. Normocytic normochromic anemia 7. s/p 09/25/2018 defibrillator placement * Dual chamber implantable cardioverter defibrillator =>[employer], model [id number], serial number [id number], 8. Hx of appendectomy 9. Hx of gout 10. Metabolic syndrome w/DMT2 as evidence by HGB A1c 7.6 05/13/2018 * Patient denies DM -- possibly in denial vs other (unreliable historian) 11. Hx of Tobaccoism 12. Hx of GOUT w/hx of exacerbation to to diuretic Tx ABX ALLERGIES: KNDA INVASIVES: PIV CURRENT ABX: DAY # Amoxicillin po #2 ID RECOMMENDATIONS/PLAN: 1. He is stable -- He does not appear septic 2. May DC home on Amoxicillin 500mg PO TID to complete 10 day course . Consultation Date/Type/Reason Admit Date/Time Mar 22, 2019 at 18:36 Initial Consult Date Date/Time of Note DATE: 03/24/19 TIME: 18:45 Exam/Review of Systems Exam Vitals Vital Signs Date Temp Pulse Resp B/P (MAP) Pulse Ox O2 O2 Flow FiO2 Time Delivery Rate 03/24/19 97.8 69 20 124/77 96 14:32 (93) 03/23/19 Room Air 20:00 Intake and Output 03/23/19 03/23/19 03/24/19 1515:00 23:00 07:00 IntakeIntake Total 1120 ml 350 ml BalanceBalance 1120 ml 350 ml Results Result Diagram: 03/24/19 0458 03/24/19 0457 Results 24hrs Laboratory Tests Test 03/23/19 21:50 03/24/19 01:53 03/24/19 04:57 03/24/19 04:58 Bedside Glucose 181 152 Sodium Level 144 Potassium Level 3.9 Chloride Level 108 Carbon Dioxide Level 28 Anion Gap 8 Blood Urea Nitrogen 14 Creatinine 0.86 Est Glomerular Filtrat > 60 Rate mL/min Glucose Level 136 # Lactic Acid Level 1.1 Calcium Level 9.0 White Blood Count 8.2 # Red Blood Count 4.14 L Hemoglobin 12.5 L Hematocrit 36.3 L Mean Corpuscular Volume 87.7 Mean Corpuscular 30.2 Hemoglobin Mean Corpuscular 34.4 Hemoglobin Concent Red Cell Distribution 12.4 Width Platelet Count 260 # Mean Platelet Volume 10.7 H Immature Granulocytes % 0.900 H Neutrophils % 38.2 L Lymphocytes % 43.3 Monocytes % 11.4 H Eosinophils % 5.8 Basophils % 0.4 Nucleated Red Blood 0.0 Cells % Immature Granulocytes # 0.070 H Neutrophils # 3.1 Lymphocytes # 3.5 H Monocytes # 0.9 Eosinophils # 0.5 Basophils # 0.0 Nucleated Red Blood 0.0 Cells # Hemoglobin A1c 5.9 Iron Level 90 Total Iron Binding 258 Capacity Percent Iron Saturation 35 Thyroid Stimulating 3.380 Hormone (TSH) Test 03/24/19 08:18 Bedside Glucose 137 Medications Medication Current Medications Aspirin (Aspirin) 81 mg DAILY PO Last administered on 03/24/19at 08:21; Admin Dose 81 MG; Start 03/23/19 at 09:00 Carvedilol (Coreg) 3.125 mg BID PO Last administered on 03/24/19 08:21; Admin Dose 3.125 MG; Start 03/22/19 at 22:00 Furosemide (Lasix) 20 mg DAILY PO Last administered on 03/24/19 08:21; Admin Dose 20 MG; Start 03/23/19 at 09:00 Spironolactone (Aldactone) 25 mg DAILY PO Last administered on 03/24/19 08:21; Admin Dose 25 MG; Start 03/23/19 at 09:00 Acetaminophen/ Hydrocodone Bitart ([place] (7.5-325)) 1 tab Q4H PRN PO MODERATE PAIN LEVEL 4-6; Start 03/22/19 at 22:00 Acetaminophen (Tylenol Tab) 650 mg Q6H PRN PO MILD PAIN(1-3)OR ELEVATED TEMP Last administered on 03/24/19at 11:10; Admin Dose 650 MG; Start 03/22/19 at 22:00 Albuterol/ Ipratropium (Duoneb) 3 ml Q6H RESP THERAPY PRN HHN SHORTNESS OF BREATH; Start 03/22/19 at 22:00 Sacubitril/ Valsartan (Entresto 24 Mg-26 Mg) 1 tab BID PO Last administered on 03/24/19 08:21; Admin Dose 1 TAB; Start 03/23/19 at 09:00 Pantoprazole (Protonix Tab) 40 mg DAILY@06 PO Last administered on 03/24/19at 05:58; Admin Dose 40 MG; Start 03/24/19 at 06:00 Enoxaparin Sodium (Lovenox) 40 mg DAILY SC Last administered on 03/24/19 08:22; Admin Dose 40 MG; Start 03/23/19 at 13:30 Insulin Aspart (Novolog Insulin Pen) NOVOLOG *MILD* ALGORITHM WITH MEALS BEDTIME SC Last administered on 03/23/19at 21:56; Admin Dose 1 UNIT; Start 03/23/19 at 17:55 Miscellaneous Information 1 ea NOTE XX ; Start 03/23/19 at 14:00 Glucose (Glutose) 15 gm Q15M PRN PO DECREASED GLUCOSE; Start 03/23/19 at 14:00 Glucose (Glutose) 22.5 gm Q15M PRN PO DECREASED GLUCOSE; Start 03/23/19 at 14:00 Dextrose (D50w Syringe) 25 ml Q15M PRN IV DECREASED GLUCOSE; Start 03/23/19 at 14:00 Dextrose (D50w Syringe) 50 ml Q15M PRN IV DECREASED GLUCOSE; Start 03/23/19 at 14:00 Glucagon (Glucagen) 1 mg Q15M PRN IM DECREASED GLUCOSE; Start 03/23/19 at 14:00 Glucose (Glutose) 15 gm Q15M PRN BUCCAL DECREASED GLUCOSE; Start 03/23/19 at 14:00 Phenol (Cepastat Lozenge) 1 lozenge Q3 PRN MT sore throat; Start 03/23/19 at 14:00 Amoxicillin (Amoxicillin) 500 mg Q8 PO Last administered on 03/24/19at 13:43; Admin Dose 500 MG; Start 03/23/19 at 16:00 BETH OJEDA NP Mar 24, 2019 18:55
[2019-03-24 20:33] VITALS: BP 116/74; PULSE 59; RESP 18
[2019-03-25 02:33] VITALS: BP 99/62; PULSE 60; RESP 16
[2019-03-25] MEDS: PANTOPRAZOLE (EC) 40 MG TAB PO SCH (06:05)
[2019-03-25] MEDS: AMOXICILLIN 500 MG CAP PO SCH ×2 (06:05→13:39)
[2019-03-25 07:24] VITALS: BP 115/74; PULSE 59; RESP 18
[2019-03-25] MEDS: INSULIN ASPART [NOVOLOG] 3 ML PEN SC SCH ×2 (08:00→12:00)
[2019-03-25] MEDS: SACUBITRIL/VALSARTAN (24mg-26mg) TABLET PO SCH (08:45)
[2019-03-25] MEDS: ASPIRIN 81 MG TAB PO SCH (08:45)
[2019-03-25] MEDS: SPIRONOLACTONE 25 MG TAB PO SCH (08:46)
[2019-03-25] MEDS: FUROSEMIDE 20 MG TAB PO SCH (08:46)
[2019-03-25] MEDS: ENOXAPARIN 40 MG/0.4 ML SYG SC SCH (09:01)
--- NOTE | 2019-03-25 12:24 | PDOCDIS ---
Discharge Instructions DIAGNOSIS Discharge Diagnosis pharyngitis, bacteremia CONDITION [id number] Patient Condition: [id number] Stable ACTIVITY: [id number] Activity Restrictions: [id number] Slowly Increase Activity Rest between Activity Avoid heavy lifting FOLLOW UP/APPOINTMENTS Follow-up Plan PCP 1 week ZAYNAB MONTESINOS Mar 25, 2019 12:24
[2019-03-25] MEDS ORDERED: AMOX500C2 PO (12:29)
--- NOTE | 2019-03-25 12:40 | DS ---
Date/Time of Note Date/Time of Note DATE: 03/25/19 TIME: 12:38 Discharge Summary Admission/Discharge Info Admit Date/Time Mar 22, 2019 at 18:36 Discharge Date/Time Discharge Diagnosis pharyngitis, bacteremia Patient Condition: Stable Consults Dr Herbert, ID Hospital Course This 44 y.o male with medical history of CHF, obesity, DM type ii, gout, implanted defibrillator, hypertension, and group A strep throat was transferred this night from [facility] for fever, myalgia, nausea, and pain in throat. Pt had similar symptoms before, he was diagnosed with sepsis. He was brought to [facility] on 03/22/2019. He was drawn blood. CBC showed 16.1 RBC 4.09 hemoglobin 12.5 hematocrit 35.8 platelets 197. UA is negative. BMP shows glucose 264 sodium 142 potassium 3.0 chloride 104 CO2 24 BUN 14 calcium 8.9 albumin 3.6. Lactic acid once 3.78. Vital signs blood pressure 120/71 saturation on room air 97 temperature 99.3 pulse 96 respiration 18. Chest x-ray was done results are not seen. It was given penicillin 1,200,000 once IV . Potassium was supplemented patient was given 2 L of sodium chloride. Due to insurance purposes was transferred to [facility]. Medical history: 1. Diabetes mellitus type II. 2. CHF, chronic. 3. Hypertension. 4. Gout. 5. Obesity. SOCIAL HISTORY: Per records, no history of smoking, alcohol. The patient used to use methamphetamine. [employer] by profession. Ds: 1. Sepsis with myalgia, fever, leucocytosis. pt had lactic acid 3.78 in [facility] ,consecutive lactic acid is 1.1. WBC 16in [facility]. Blood cultures was drawn in the [facility], pending. 2. Tonsillitis. Pt has history of group A strep throat infection in past. Now throat culture strep A is negative 3. Hypertension 4. Obesity 5. CHF, EF 15-20 % 6. Normocytic normochromic anemia, iron level is normal 7. s/p defibrillator placement 09/2018, 8. Hx of appendectomy 9. Hx of gout 10. pt is prediabetic Hg A1 C 5.9 During hospitalization pt c/w Amoxicillin per ID consult dr Herbert recommendations. We followed with hypoglycemic protocol due to history of diabetes mellitus, but found that pt lost weight in past and followed strict diet, so his Hg A1 C is 5.9. We c/w home medications and BP control was achieved. We c/w coreg, furosemide. We checked iron panel, he has normal amount of iron. The throat culture is negative. Additionally, blood cultures were drawn in the [facility], they are negative. Pt had lozenges to suck to relive pain. Pt is clinically improved and was sent home with PO antibiotics. Home Meds Active Scripts Amoxicillin* (Amoxicillin*) 500 Mg Cap, 500 MG PO Q8 for 10 Days, CAP Prov:ZAYNAB MONTESINOS 03/25/19 Hydrocodone/Acetaminophen ([place] 7.5-325 Tablet) 1 Each Tablet, 1 EACH PO Q4 for pain, #30 TAB Prov:ANNIE JIMENEZ MD 09/26/18 Reported Medications Furosemide* (Furosemide*) 20 Mg Tablet, 20 MG PO DAILY, #60 TAB 09/25/18 Sacubitril/Valsartan (Entresto 24 mg-26 mg Tablet) 1 Each Tablet, 1 EACH PO BID, TAB 09/25/18 Spironolactone* (Aldactone*) 25 Mg Tablet, 25 MG PO DAILY, #30 TAB 09/25/18 Carvedilol* (Carvedilol*) 3.125 Mg Tablet, 3.125 MG PO BID, #60 TAB 09/25/18 Aspirin (Low Dose Aspirin) 81 Mg Tablet.dr, 81 MG PO DAILY, #30 TAB 09/25/18 Follow-up Plan PCP 1 week Primary Care Provider Not On Staff Doctor Time spent on discharge: < 30 minutes Pending Labs Laboratory Tests Test 03/24/19 21:36 03/25/19 05:30 03/25/19 08:41 Bedside Glucose 173 mg/dL (70-220) 127 mg/dL (70-220) White Blood Count 8.2 10^3/ul (4.8-10.8) Red Blood Count 4.16 10^6/ul (4.70-6.10) Hemoglobin 12.4 g/dl (14.0-18.0) Hematocrit 36.8 % (42.0-52.0) Mean Corpuscular 88.5 Volume fl (82.0-101.0) Mean Corpuscular 29.8 pg (29.0-33.0) Hemoglobin Mean Corpuscular 33.7 Hemoglobin Concent g/dl (32.0-37.0) Red Cell 12.0 % (11.5-14.5) Distribution Width Platelet Count 260 10^3/UL (140-415) Mean Platelet 10.5 fl (7.4-10.4) Volume Immature 1.000 Granulocytes % % (0.001-0.429) Neutrophils % 41.1 % (39.0-77.0) Lymphocytes % 42.4 % (15.0-51.0) Monocytes % 9.7 % (0.0-11.0) Eosinophils % 5.4 % (0.0-7.0) Basophils % 0.4 % (0.0-2.0) Nucleated Red Blood 0.0 Cells % /100WBC (0.0-0.0) Immature 0.080 Granulocytes # 10^3/ul (0.0-0.031) Neutrophils # 3.4 10^3/ul (1.6-7.5) Lymphocytes # 3.5 10^3/ul (0.8-2.9) Monocytes # 0.8 10^3/ul (0.3-0.9) Eosinophils # 0.4 10^3/ul (0.0-0.5) Basophils # 0.0 10^3/ul (0.0-0.1) Nucleated Red Blood 0.0 Cells # 10^3/ul (0.0-0.0) Sodium Level 145 mmol/L (135-144) Potassium Level 4.0 mmol/L (3.5-5.1) Chloride Level 108 mmol/L (97-110) Carbon Dioxide 30 mmol/L (21-31) Level Anion Gap 7 (5-13) Blood Urea 14 mg/dl (7-20) Nitrogen Creatinine 0.96 mg/dl (0.61-1.24) Est Glomerular > 60 mL/min (>60) Filtrat Rate mL/min Glucose Level 134 mg/dl (70-220) Calcium Level 9.0 mg/dl (8.4-10.2) ZAYNAB MONTESINOS Mar 25, 2019 12:40
== END 2019-03-25 14:00 | disposition home or self-care (01) | DRG 872 ==
LOC: TEL 18:36 → 2NE 03-23 20:53
PROVIDERS: ADMIT Internal Medicine Nephrology; ATTEND Internal Medicine Nephrology
DX: A41.9 Sepsis, unspecified organism (principal); I42.8 Other cardiomyopathies; J03.90 Acute tonsillitis, unspecified; I11.0 Hypertensive heart disease with heart failure; I50.9 Heart failure, unspecified; E66.9 Obesity, unspecified; Z68.30 Body mass index [BMI] 30.0-30.9, adult; Z96.89 Presence of other specified functional implants; D64.9 Anemia, unspecified; M10.9 Gout, unspecified; B95.0 Streptococcus, group A, as the cause of diseases classified elsewhere; J02.0 Streptococcal pharyngitis; E11.9 Type 2 diabetes mellitus without complications; F17.200 Nicotine dependence, unspecified, uncomplicated
CPT/HCPCS: 80048; 80053; 82962; 83036; 83540; 83605; 84443; 85025; 87880; J0696; J1650; J1815